=== PATIENT | male | born 1980 | race Caucasian/White ===

== ENCOUNTER 2023-12-04 18:25 | Emergency (ER) | payer OTHER, SELFPAY ==
[2023-12-04 18:59] VITALS: BP 147/90; PULSE 106; RESP 18; TEMP 37.2; O2SAT 98; BMI 30.6
--- NOTE | 2023-12-04 19:27 | ED_ITS ---
HPI - Wound/Laceration General: Chief Complaint: Wound/Laceration Stated Complaint: sore on back,fever,chills Time Seen by Provider: 12/04/23 19:05 Source: patient Mode of arrival: ambulatory Limitations: no limitations History of Present Illness: 43-year-old male that states he has had an abscess to his back is been going on for the last week. He states that it has been enlarging and is red and hot and has had some drainage from it. States he is also had some chills body aches states he just got back to [place] and one of his friends tested positive for COVID he denies any severe shortness of breath denies cough. Associated symptoms: Reports chills; Denies fever(s), nausea or vomiting Review of Systems Const: Reports: chills and body aches; Denies: fever(s) or change in appetite Eyes: Denies: eye discomfort ENMT: Denies: throat pain or dental pain Card: Denies: chest pain Resp: Denies: dyspnea GI: Denies: abdominal pain, nausea, vomiting or diarrhea Musc: Denies: neck pain or back pain Skin/Breast: Reports: erythema; Denies: rash Neuro: Denies: headache(s) Physical Exam Const: COMMON NORMALS: no acute distress, patient oriented x3 and healthy appearing HENMT: COMMON NORMALS: normocephalic and atraumatic HEAD & SCALP: normocephalic and atraumatic Eye: COMMON NORMALS: Equal, round and reactive pupils present and EOMs intact bilaterally PUPIL: Yes Equal, round and reactive pupils present Neck/C-Spine: COMMON NORMALS: full ROM and supple Chest: COMMONS NORMALS: normal inspection of the chest Resp: COMMON NORMALS: normal respiratory effort Cardio: COMMON NORMALS: regular rate, regular rhythm and No murmurs present (Cardio) RATE: regular rate RHYTHM: regular rhythm GI: COMMON NORMALS: Normal to inspection, nondistended, normoactive bowel sounds present, Soft to palpation, non-tender and no masses PALPATION: Yes Soft to palpation Extremity: COMMON NORMALS: normal to inspection and full ROM Neuro: COMMON NORMALS: patient oriented x3, moves all extremities and no focal motor deficits Psych: COMMON NORMALS: mental status grossly normal, Normal thought process present and cooperative THOUGHT PROCESS: Normal thought process present Skin: NARRATIVE SKIN EXAM: 6 cm abscess noted to upper back Procedures Abscess I/D Site: back Local Anesthetic: lidocaine 1% Amount of anesthesia used (mL): 10 Technique: incised with #11 blade Packing used?: iodoform Course Vital Signs: Vital signs: Vital Signs Temperature 98.9 F 12/04/23 18:59 Pulse Rate 106 H 12/04/23 18:59 Respiratory Rate 18 12/04/23 18:59 Blood Pressure 147/90 12/04/23 18:59 Pulse Oximetry 98 12/04/23 18:59 Oxygen Delivery Me thod Room Air 12/04/23 18:59 MDM - Wound/Laceration Medical Decision Making Patient presents here with an abscess to his upper back abscess was incised and drained with her large amount of purulent material did place packing he is to return in 2 days or remove the packing at home did start him on Bactrim he is to follow-up with PCP and return if worsening Medical Records I reviewed the patient's medical records. No radiology studies performed this visit Discharge Plan Discharge Patient Disposition: Home Clinical Impression: Abscess Condition: Stable Prescriptions: New hydrocodone-acetaminophen 5-325 mg tablet 1 tab PO Q6H PRN (Reason: pain) Qty: 14 0RF Bactrim DS 800-160 mg tablet 1 tab PO BID 10 Days Qty: 20 0RF Discharge Orders: Discharge ED (Routine); Ordered 12/04/23 Ordered By: Abdi Olguin Referrals: Segundo Hughes MD [Primary Care Provider] - 4-7 days Discharge Diet: Advance as tolerated Discharge Activity: Resume usual activity Patient Instructions: Abscess (ED), Opioid Safety Coding Level of Care Code ED Supervisor Of Research for Sheryl James
[2023-12-04] MEDS: LORazepam 2 mg/mL INJ 10 mL MDV 1 MG IM (19:32)
[2023-12-04] MEDS: sulfamethoxazole-trimeth DS 160-800 mg Tablet 1 TAB PO (19:32)
[2023-12-04] MEDS: HYDROcodone-acetaminophen 7.5-325 mg Tablet 1 TAB PO (20:37)
[2023-12-04 21:22] LABS: Adenovirus Not Detected (NOT DETECT); Chlamydia Pneumoniae Not Detected (NOT DETECT); Coronavirus 229E,HKU1,NL63,OC4 Not Detected (NOT DETECT); Human Metapneumovirus Not Detected (NOT DETECT); Human Rhinovirus/Enterovirus Not Detected (NOT DETECT); Influenza A Not Detected (NOT DETECT); Influenza A H1 Not Detected (NOT DETECT); Influenza A H1-2009 Not Detected (NOT DETECT); Influenza A H3 Not Detected (NOT DETECT); Influenza B Not Detected (NOT DETECT); Mycoplasma Pneumoniae Not Detected (NOT DETECT); Parainfluenza Virus Type 1 Not Detected (NOT DETECT); Parainfluenza Virus Type 2 Not Detected (NOT DETECT); Parainfluenza Virus Type 3 Not Detected (NOT DETECT); Parainfluenza Virus Type 4 Not Detected (NOT DETECT); Respiratory Syncytial Virus A Not Detected (NOT DETECT); Respiratory Syncytial Virus B Not Detected (NOT DETECT); SARS-COV-2 Not Detected (NOT DETECT)
== END 2023-12-04 20:40 | disposition home or self-care (01) ==
PROVIDERS: Emergency Provider Emergency Medicine; PCP Family Medicine
DX: L02.212 Cutaneous abscess of back [any part, except buttock and flank] (principal)
CPT/HCPCS: 10060; 87070; 87077; 87186; 87486; 87581; 87633; 96372; 99284; J2060

== ENCOUNTER 2023-12-06 18:52 | Emergency (ER) | payer OTHER, SELFPAY ==
[2023-12-06 20:41] VITALS: BP 166/102; PULSE 107; RESP 18; TEMP 37.9; O2SAT 97; BMI 30.6
--- NOTE | 2023-12-06 22:12 | PC.NURSE ---
Pt sent home with 1 tab 100mg Doxycycline per MARY ELLEN Rosenbaum's order.
[2023-12-06 22:13] VITALS: PULSE 100; RESP 18; O2SAT 96
--- NOTE | 2023-12-07 00:10 | ED_ITS ---
HPI - Wound/Laceration General: Chief Complaint: Wound/Laceration Stated Complaint: wound dressing needs changed (jaden says MRSA) Time Seen by Provider: 12/06/23 21:22 Source: patient Mode of arrival: ambulatory Limitations: no limitations History of Present Illness: Patient is a 43-year-old male presenting to the emergency department for wound recheck. Patient had an abscess drained and packed on 12/03, states he is here to have it rechecked and make sure it is draining appropriately. He also notes he has been running fevers, though not as high and states that his pain has been improving. He notes that the day after he had it drained he was very sick with nausea and vomiting, however this is much improved as well. Wound culture did result in staff, susceptibility not yet resulted. No symptoms to report at this time. Has been taking hydrocodone/acetaminophen at home for pain and fevers. Onset (ago): day(s) Location: back Associated symptoms: Denies chills, fever(s), nausea or vomiting Review of Systems General: Reports: 10 or more systems reviewed and unremarkable except in HPI and below Const: Denies: fever(s), chills or fatigue Eyes: Denies: change in vision ENMT: Denies: throat pain, ear or mastoid pain or nasal discharge Card: Denies: chest pain, palpitations, swelling of feet/ankles or lightheadedness Resp: Denies: dyspnea, productive cough or wheezing GI: Denies: abdominal pain, nausea, vomiting, diarrhea or constipation : Denies: flank pain, difficulty urinating, dysuria or urinary frequency Musc: Denies: neck pain, back pain or joint pain Skin/Breast: Reports: lesions (Abscess to right upper back); Denies: rash Neuro: Denies: headache(s), numbness in extremities or weakness in extremities Physical Exam Const: COMMON NORMALS: no acute distress, patient oriented x3 and no limitations GENERAL APPEARANCE: cooperative, comfortable and well developed ORIENTATION/CONSCIOUSNESS: Yes awake, Yes oriented to person, Yes oriented to place and Yes oriented to time HENMT: COMMON NORMALS: normocephalic, atraumatic and hearing grossly normal bilaterally HEAD & SCALP: normocephalic and atraumatic Eye: COMMON NORMALS: Equal, round and reactive pupils present, EOMs intact bilaterally and conjunctivae normal CONJUNCTIVA: Yes conjunctivae normal PUPIL: Yes Equal, round and reactive pupils present Neck/C-Spine: COMMON NORMALS: full ROM, supple and no JVD Resp: COMMON NORMALS: normal respiratory effort, No retractions, No use of accessory muscles and clear to auscultation bilaterally AUSCULTATION: clear to auscultation bilaterally Cardio: COMMON NORMALS: no JVD, regular rate, regular rhythm, No clicks present (Cardio), No murmurs present (Cardio) and No rub (Cardio) RATE: regular rate RHYTHM: regular rhythm Extremity: COMMON NORMALS: normal to inspection, full ROM and capillary refill normal Neuro: COMMON NORMALS: patient oriented x3, moves all extremities, no focal motor deficits and no sensory deficits noted SENSORIUM/ORIENTATION: Yes oriented to person, Yes oriented to place and Yes oriented to time Psych: COMMON NORMALS: mental status grossly normal and Normal thought process present THOUGHT PROCESS: Normal thought process present Skin: NARRATIVE SKIN EXAM: There is a draining lesion to right upper back, packing present. There is area of surrounding erythema, patient reports this is no change from prior. Area is mildly tender to the touch. There is also a satellite lesion that is actively draining pus just inferior to primary lesion. Procedures Abscess I/D Amount of fluid expressed (mL): 5 Packing used?: plain Course Vital Signs: Vital signs: Vital Signs Temperature 100.2 F H 12/06/23 20:41 Pulse Rate 100 12/06/23 22:13 Respiratory Rate 18 12/06/23 22:13 Blood Pressure 166/102 12/06/23 20:41 Pulse Oximetry 96 12/06/23 22:13 Oxygen Delivery Me thod Room Air 12/06/23 20:41 MDM - Wound/Laceration Medical Decision Making Patient presented for redressing of his wound. He did note that he has been having fevers, though he has progressively felt more more better since abscess was initially drained. Upon examination of the lesion it was draining appropriately, though packing was removed and did reveal more drainage. Serosanguineous/purulent drainage expressed, and it was repacked for the next couple of days. He has appointment with primary care on Friday for this packing to be taken out. No need for further lab evaluation at this time, though we will add doxycycline to cover for any further organisms to take along with his Bactrim. He is given strict return precautions such that if he starts feeling worse, having any nausea vomiting, or persistent fevers that he needs to return for reevaluation and further lab work. Otherwise he will follow-up as planned. Care of this patient, and repacking was assisted by supervising ED physician, Dr. Hansen, who agrees with disposition of the patient at this time. No radiology studies performed this visit Discharge Plan Discharge Patient Disposition: Home Clinical Impression: Abscess Condition: Stable Prescriptions: New doxycycline hyclate 100 mg tablet 100 mg PO BID 10 Days Qty: 20 0RF No Action hydrocodone-acetaminophen 5-325 mg tablet 1 tab PO Q6H PRN (Reason: pain) Qty: 14 0RF Bactrim DS 800-160 mg tablet 1 tab PO BID 10 Days Qty: 20 0RF Discharge Orders: Discharge ED (Routine); Ordered 12/06/23 Ordered By: Josue Rosenbaum Referrals: Segundo Hughes MD [Primary Care Provider] - Discharge Diet: Usual diet Discharge Activity: Increase activity as tolerated Patient Instructions: Abscess (ED) Activity Restrictions/Additional Instructions: Add doxycycline to your medication regimen, continue taking Bactrim. Keep follow-up for Friday to have current packing removed. Continue proper wound care as you have been. Hydrocodone for pain. If you develop any significant nausea or vomiting, continuation of high fevers, or any other concerning signs of increasing infection, please return immediately. Coding Level of Care Code ED Cafeteria Monitor for Sheryl James
== END 2023-12-06 22:15 | disposition home or self-care (01) ==
PROVIDERS: Emergency Provider Physician Assistant; PCP Family Medicine
DX: Z48.00 Encounter for change or removal of nonsurgical wound dressing (principal); L02.212 Cutaneous abscess of back [any part, except buttock and flank]
CPT/HCPCS: 99282